=== PATIENT | male | born 1945 | race Caucasian/White ===

== ENCOUNTER 2019-09-07 17:32 | Emergency (ER) | payer MEDICARE ==
--- NOTE | 2019-09-07 18:22 | ED ---
Neurological HPI - HPI Summary HPI Summary: This pt is a 74 y/o male presenting to [facility] c/o blurry vision since 1100 today. Pt reports he has been feeling pressure on his eyes. He describes associated dizziness, however denies room spinning sensation and more as "not focusing well." Pt also took his blood pressure at home and it was 200/100. Denies chest pain, SOB, headache, fever. Patient is unable to remember if he took his antihypertensive medication today. Pt reports he has a pinched nerve on right hip and has been lying on the floor on his back for almost 1 week now as his pain is aggravated with movement. Currently rates his right hip pain 3/10 in severity. Pt notes [facility] and has been taking Gabapentin. Pt reports he has had an XR and has been to PT but his pain worsened after PT. Pt has been scheduled for an MRI. - History of Current Complaint Chief Complaint: EDNeurologicalDeficit Stated Complaint: STROKE SYMPTOMS PER Time Seen by Provider: 09/07/19 18:06 Hx Obtained From: Patient Onset/Duration: Started hours ago, Still Present Timing: Constant Onset Severity: Moderate Current Severity: Mild Pain Intensity: 3 - right hip Pain Scale Used: 0-10 Numeric Character: Visual Changes - blurry Aggravating: Nothing Alleviating: Nothing Associated Signs and Symptoms: Positive: Visual Changes - blurry vision. Negative: Fever, Chest Pain, Shortness of Breath - Allergy/Home Medications Allergies/Adverse Reactions: Allergies Allergy/AdvReac Type Severity Reaction Status Date / Time No Known Allergies Allergy Verified 06/21/15 10:27 PMH/Surg Hx/FS Hx/Imm Hx Cardiovascular History: Reports: Hx Hypertension Respiratory History: Denies: Hx Asthma, Hx Chronic Obstructive Pulmonary Disease (COPD) GI History: Reports: Hx Gastroesophageal Reflux Disease Infectious Disease History: No Infectious Disease History: Denies: Traveled Outside the [place] in Last 30 Days - Family History Family History: Father with colon CA. Grandfather with pancreatic CA at age 63. - Social History Alcohol Use: Rare Substance Use Type: Reports: None Smoking Status (MU): Never Smoked Tobacco Review of Systems Negative: Fever, Chills Positive: Blurred Vision Negative: Chest Pain Negative: Shortness Of Breath Neurological: Other - POSITIVE: dizziness Negative: Headache All Other Systems Reviewed And Are Negative: Yes Physical Exam - Summary Physical Exam Summary: VITAL SIGNS: Reviewed. GENERAL: Patient is a well-developed and nourished male who is lying comfortable in the stretcher. Patient is not in any acute respiratory distress. HEAD AND FACE: No signs of trauma. No ecchymosis, hematomas or skull depressions. No sinus tenderness. EYES: PERRLA, EOMI x 2, No injected conjunctiva, no nystagmus. EARS: Hearing grossly intact. Ear canals and tympanic membranes are within normal limits. MOUTH: Oropharynx within normal limits. NECK: Supple, trachea is midline, no adenopathy, no JVD, no carotid bruit, no c- spine tenderness, neck with full ROM. CHEST: Symmetric, no tenderness at palpation LUNGS: Clear to auscultation bilaterally. No wheezing or crackles. CVS: Regular rate and rhythm, S1 and S2 present, no murmurs or gallops appreciated. ABDOMEN: Soft, non-tender. No signs of distention. No rebound, no guarding, and no masses palpated. Bowel sounds are normal. EXTREMITIES: Decreased ROM of right hip secondary to chronic pain and pinched nerve. NEURO: Alert and oriented x 3. No acute neurological deficits. Speech is normal and follows commands. SKIN: Dry and warm GCS: 15 Triage Information Reviewed: Yes Vital Signs On Initial Exam: Initial Vitals Temp Pulse Resp BP Pulse Ox 98.2 F 119 19 164/96 97 09/07/19 17:38 09/07/19 17:38 09/07/19 17:38 09/07/19 17:38 09/07/19 17:38 Vital Signs Reviewed: Yes Procedures - Sedation Patient Received Moderate/Deep Sedation with Procedure: No Diagnostics - Vital Signs Vital Signs Temp Pulse Resp BP Pulse Ox 09/07/19 17:38 98.2 F 119 19 164/96 97 - Laboratory Result Diagrams: 09/07/19 18:20 09/07/19 18:20 Lab Statement: Any lab studies that have been ordered have been reviewed, and results considered in the medical decision making process. - Radiology Chest XR Radiology Interpretation Completed By: ED Physician Summary of Radiographic Findings: No acute process. - CT Brain CT CT Interpretation Completed By: Radiologist Summary of CT Findings: IMPRESSION: No acute intracranial abnormality. Dr. Moulton has reviewed this report. - EKG 18:14 Cardiac Rate: NL - at 97 bpm EKG Rhythm: Sinus Rhythm Summary of EKG Findings: EKG at 181 shows normal sinus rhythm at a rate of [address] elevations. ED physician has reviewed and interpreted this EKG. NIH Scale - NIH Scale Level of Consciousness: Alert/Keenly Responsive Ask Patient the Month and His/Her Age: Both Correct Ask Pt to Open/Close Eyes and Nutrition Helper/Release Non-Paretic Hand: Both Correctly Best Gaze (Only Horizontal Eye Movement): Normal Visual Field Testing: No Visual Loss Facial Paresis-Pt to Smile & Close Eyes or Grimace Symmetry: Normal/Symmetrical Motor Function - Right Arm: No Drift-Holds 10 Seconds Motor Function - Left Arm: No Drift-Holds 10 Seconds Motor Function - Right Leg: No Drift-Holds 10 Seconds Motor Function - Left Leg: No Drift-Holds 10 Seconds Limb Ataxia-Must be out of Proportion to Weakness Present: Absent Sensory (Use Pinprick to Test Arms/Legs/Trunk/Face): Normal Best Language (Describe Picture, Name Items): No Aphasia Dysarthria (Read Several Words): Normal Extinction and Inattention: No Abnormality Total Score: 0 Course/Dx - Course Assessment/Plan: This pt is a 74 y/o male presenting to [facility] c/o blurry vision since 1100 today. Pt reports he has been feeling pressure on his eyes. He describes associated dizziness, however denies room spinning sensation and more as "not focusing well." Pt also took his blood pressure at home and it was 200/ 100. Denies chest pain, SOB, headache, fever. Patient is unable to remember if he took his antihypertensive medication today, 10 mg. Pt reports he has a pinched nerve on right hip and has been lying on the floor on his back for almost 1 week now. Currently rates his right hip pain 3/10 in severity. Pt [facility] and has been taking Gabap[facility]. Pt reports he has had an XR and has been to PT but his pain worsened after PT. Pt has been scheduled for an MRI. Blood work without any significant abnormality except for BUN 25, glucose 155 and AST of 65. Troponin is 0.01. Head CT shows no acute intracranial pathology. Chest x-ray impression: No acute process. Patients blood pressure is 153/96 therefore he was given 5 mg of amlodipine which is his usual blood pressure medication. The patient is asymptomatic at this time. Patient was given one dose of Norvasc for his HTN. At this point, I discussed all the findings and test results with the patient. Patient was instructed to return to the emergency room immediately if any of the symptoms return or worsen. Plan of care was discussed with the patient and patient understands and agrees. All questions were answered at patient satisfaction. Patient understands and agrees. Neurological exam before discharge: Patient is alert and oriented x 3. No acute neurological deficits. Patient's vital signs are stable. Patient is to follow up with PCP in the next 2 3 days. They understand and agree. The plan of care was discussed with the patient and patient understands and agrees with the plan of care. All questions were answered at patient satisfaction. There were no further complaints or concerns. - Diagnoses Provider Diagnoses: Dizziness, Visual changes, Uncontrolled hypertension Discharge ED - Sign-Out/Discharge Documenting (check all that apply): Patient Departure - Discharge home - Discharge Plan Condition: Stable Disposition: HOME Patient Education Materials: Hypertension (ED), Blurred Vision (ED), Dizziness (ED) Referrals: Darlene Hitchcock [Primary Care Provider] - Additional Instructions: FOLLOW UP WITH YOUR PRIMARY CARE PROVIDER IN 2-3 DAYS. RETURN TO THE ED FOR ANY NEW OR WORSENING SYMPTOMS. - Billing Disposition and Condition Condition: STABLE Disposition: Home - Attestation Statements Document Initiated by Nuvia: Yes Documenting Okibe: Venus Louis Provider For Whom Nuvia is Documenting (Include Credential): Eyal Moulton MD Scribe Attestation: Venus Zuñiga scribed for Eyal Moulton MD on 09/07/19 at 2148. Scribe Documentation Reviewed: Yes Provider Attestation: The documentation as recorded by the Venus bains accurately reflects the service I personally performed and the decisions made by , Eyal Moulton MD Status of Scribe Document: Viewed
[2019-09-07 18:35] LABS: ABS Monocytes 0.7 10^3/ul (0-0.8); ABS Neutrophils 8.3 10^3/ul (1.5-7.7); Eosinophil % 0.2 %; Hematocrit 40 % (42-52); Hemoglobin 14.2 g/dL (14.0-18.0); Lymphocyte % 10.1 %; Mean Corpuscular HGB Conc 35 g/dL (31-36); Mean Corpuscular Hemoglobin 31 pg (27-31); Mean Corpuscular Volume 89 fL (80-94); Mean Platelet Volume 8.3 fL (7.4-10.4); Platelet Count 217 10^3/uL (150-450); Red Blood Count 4.53 10^6 /uL (4.18-5.48); Red Cell Distribution Width 12 % (10-15); White Blood Count 10.1 10^3/uL (3.5-10.8)
[2019-09-07 18:46] LABS: Activated Partial Thrombo Time 29.6 seconds (26.0-38.0); INR 0.94 (0.82-1.09)
[2019-09-07 18:56] LABS: ALT 65 U/L (7-52); AST 22 U/L (13-39); Albumin 4.2 g/dL (3.2-5.2); Albumin/Globulin Ratio 1.7 (1-3); Alkaline Phosphatase 66 U/L (34-104); Anion Gap 8 mmol/L (2-11); BUN/Creatinine Ratio 22.3 (8-20); Blood Urea Nitrogen 25 mg/dL (6-24); CO2 Carbon Dioxide 26 mmol/L (22-32); Calcium 9.6 mg/dL (8.6-10.3); Chloride 105 mmol/L (101-111); Cholesterol 169 mg/dL; EGFR African American 77.8 (>60); EGFR Non-African American 64.3 (>60); Globulin 2.5 g/dL (2-4); Glucose 155 mg/dL (70-100); HDL Cholesterol 42.6 mg/dL; LDL Cholesterol 94 mg/dL; Potassium 4.4 mmol/L (3.5-5.0); Sodium 139 mmol/L (135-145); Total Protein 6.7 g/dL (6.4-8.9); Triglycerides 160 mg/dL
[2019-09-07 18:58] LABS: Troponin I 0.01 ng/mL (<0.03)
[2019-09-07 19:06] LABS: Alcohol < 10 mg/dL (<10)
[2019-09-07] MEDS ORDERED: amLODIPine TAB* 5 MG PO ONE (20:09)
[2019-09-07 21:27] LABS: Urine Appearance Clear; Urine Bilirubin Negative (Negative); Urine Blood 1+ (Negative); Urine Color Straw; Urine Glucose Negative (Negative); Urine Ketones Negative (Negative); Urine Nitrite Negative (Negative); Urine Protein Negative (Negative); Urine Specific Gravity 1.009 (1.010-1.030); Urine Urobilinogen Negative (Negative)
[2019-09-07 21:32] LABS: Urine Bacteria Absent (Absent); Urine Red Blood Cell Absent (Absent); Urine White Blood Cell Absent (Absent)
[2019-09-07 21:45] LABS: Urine Benzodiazepine Screen None Detected (None Detect); Urine Opiates Screen Presumptive Positive (None Detect)
[2019-09-07 21:50] VITALS: BP 155/95
== END 2019-09-07 21:45 | disposition home or self-care (01) ==
LOC: ED 17:32
DX: H53.8 Other visual disturbances (principal); R42 Dizziness and giddiness; I10 Essential (primary) hypertension; M25.551 Pain in right hip; K21.9 Gastro-esophageal reflux disease without esophagitis; Z79.899 Other long term (current) drug therapy
CPT/HCPCS: 36415; 70450; 71046; 80053; 80061; 80307; 80320; 81003; 81015; 83605; 84484; 85025; 85610; 85730; 86850; 86900; 86901; 93005; 99283; A9270-GY; G0480